=== PATIENT | male | born 1980 | race Caucasian/White ===

== ENCOUNTER 2021-11-01 19:10 | Emergency (ER) | payer OTHER ==
[~2021-11-01] VITALS: Ht 172.7 cm; Wt 77.1 kg
[2021-11-01 19:11] VITALS: BP 158/99
--- NOTE | 2021-11-01 20:00 | NUR ---
CALL TO BE SEEN BY [facility] NO RESPONSE PATIENT LEFT WITHOUT BEING SEEN BY DR. NAIR. NO FURTHER CARE PROVIDED FOR PATIENT.
--- NOTE | 2021-11-01 20:10 | NUR ---
CALL FOR THE SECOND TIME , NO RESPONSE
--- NOTE | 2021-11-01 20:20 | NUR ---
CALL FOR THE THIRD TIME NO RESPONSE
== END 2021-11-01 20:00 | disposition left against medical advice (07) ==
LOC: MED 19:10
DX: F29 Unspecified psychosis not due to a substance or known physiological condition (principal); Z53.21 Procedure and treatment not carried out due to patient leaving prior to being seen by health care provider